=== PATIENT | female | born 1980 | race Caucasian/White ===

== ENCOUNTER 2018-12-18 03:36 | Inpatient (IN) | payer SELFPAY ==
[~2018-12-18 03:36] MED LIST: DOCU-141 PO; Metformin Hcl PO; RABE20TA18 PO
[2018-12-18] MEDS ORDERED: ARIP2TAB3 PO (05:12)
[2018-12-24] MEDS ORDERED: BLOOD SUGAR DIAGNOSTIC 1 EACH STRIP IN ONE (11:30)
== END 2018-12-18 08:56 | disposition home or self-care (01) | DRG 872 ==
DX: A41.9 Sepsis, unspecified organism (principal); Z82.61 Family history of arthritis